=== PATIENT | male | born 1960 | race Caucasian/White ===

== ENCOUNTER → 2021-10-29 | Outpatient (CLI) | payer BC ==
--- NOTE | 2021-10-29 16:53 | RAD ---
Bilateral Duplex Carotid Ultrasound Indication: Reason: HTN, HYPERLIPIDEMIA, LT EYE ARTERY BLOCKED PER ORDER / Spl. Instructions: / Hist ory: Procedure: Two dimensional, duplex and color-flow images and spectral analysis are obtained of the ca rotid arteries bilaterally. Vertebral arteries are also imaged. Findings: Right Carotid: The 2 D images demonstrate mild plaquing with no evidence of significant narrowing. T he color images are normal without turbulence or jet effect. On the right ICA peak systolic velocity is 88 cm/sec. I The ICA/CCA ratio is 1.0 . Left Carotid: The 2 D images demonstrate mild plaquing with no evidence of significant narrowing. Th e color images are normal without turbulence or jet effect. On the left ICA peak systolic velocity is 78 cm/sec. The ICA/CCA ratio is 1.0 . Vertebral Arteries: The right vertebral artery is normal with normal direction of flow. The left priyanka tebral artery is normal with normal direction of flow. Impression: Normal carotid ultrasound with no hemodynamically significant stenosis. PQRS Compliance Statement - Stenosis calculations for CT, MR and conventional angiography are based upon measurement of the distal ICA diameter in accordance with the NASCET methodology. Stenosis calc ulations for carotid ultrasound studies are derived from validated velocity criteria which are known to correlate with the NASCET methodology. Electronically signed by: Beka Calhoun III, MD (10/29/2021 4:51 PM) [id number]
== END ==
LOC: US 15:43
PROVIDERS: ATTEND Family Medicine
DX: E78.2 Mixed hyperlipidemia (principal); H34.232 Retinal artery branch occlusion, left eye
CPT/HCPCS: 93880